=== PATIENT | female | born 1985 | race Caucasian/White ===

== ENCOUNTER 2018-11-16 18:29 | Emergency (ER) | payer OTHER ==
[2018-11-16 18:41] VITALS: BP 115/74
[2018-11-16] MEDS ORDERED: DIPH/PERTUSS(ACELL)/TETANUS VAC/PF 0.5 ML SYR (>=10YO) IM ONE (21:07)
[2018-11-16] MEDS ORDERED: LIDOCAINE 5% (700 MG) TRANSDERMAL ADH..PATCH TP ONE (21:08)
[2018-11-16] MEDS ORDERED: NAPROXEN 250 MG TABLET PO ONE (21:08)
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
== END 2018-11-16 21:30 | disposition home or self-care (01) ==
LOC: ER 18:29
DX: S80.212A Abrasion, left knee, initial encounter (principal); M54.6 Pain in thoracic spine; Z23 Encounter for immunization; V29.88XA Motorcycle rider (driver) (passenger) injured in other specified transport accidents, initial encounter; Y93.59 Activity, other involving other sports and athletics played individually; Y92.008 Other place in unspecified non-institutional (private) residence as the place of occurrence of the external cause
CPT/HCPCS: 90471; 90715; 99283